=== PATIENT | male | born 1990 | race Caucasian/White ===

== ENCOUNTER → 2021-06-11 12:12 | Outpatient (BNVA) | payer OTHER, SELFPAY | PROVIDERS: PCP Internal Medicine Geriatric Medicine; Visit Provider Physician Assistant Medical | DX: L24.5 Irritant contact dermatitis due to other chemical products (principal); L03.115 Cellulitis of right lower limb | CPT/HCPCS: 16000; 16020; 99203 ==

== ENCOUNTER → 2021-06-13 08:40 | Outpatient (BNVA) | payer OTHER, SELFPAY | PROVIDERS: PCP Internal Medicine Geriatric Medicine; Visit Provider Physician Assistant Medical | DX: L24.5 Irritant contact dermatitis due to other chemical products (principal); L03.115 Cellulitis of right lower limb | CPT/HCPCS: 99213 ==

== ENCOUNTER → 2021-06-18 08:48 | Outpatient (BNVA) | payer OTHER, SELFPAY | PROVIDERS: PCP Internal Medicine Geriatric Medicine; Visit Provider Physician Assistant | DX: L24.5 Irritant contact dermatitis due to other chemical products (principal); L03.115 Cellulitis of right lower limb | CPT/HCPCS: 99213 ==

== ENCOUNTER → 2021-06-23 11:16 | Outpatient (BNVA) | payer OTHER, SELFPAY | PROVIDERS: PCP Internal Medicine Geriatric Medicine; Visit Provider Physician Assistant | DX: L24.5 Irritant contact dermatitis due to other chemical products (principal); L03.90 Cellulitis, unspecified | CPT/HCPCS: 99214 ==

== ENCOUNTER → 2021-06-25 15:00 | Outpatient (BNVA) | payer OTHER, SELFPAY | PROVIDERS: PCP Internal Medicine Geriatric Medicine; Visit Provider Physician Assistant | DX: L24.5 Irritant contact dermatitis due to other chemical products (principal); L03.90 Cellulitis, unspecified | CPT/HCPCS: 99213 ==

== ENCOUNTER → 2021-06-26 06:52 | Outpatient (BNVA) | payer OTHER, SELFPAY | PROVIDERS: PCP Internal Medicine Geriatric Medicine; Visit Provider Physician Assistant ==

== ENCOUNTER 2021-07-04 07:00 | Outpatient (RCR) | payer OTHER, SELFPAY | END 2021-12-08 09:37 | disposition home or self-care (01) | LOC: HO.PTWFD 07:00 | PROVIDERS: Visit Provider Physician Assistant | DX: M79.671 Pain in right foot (principal); R60.0 Localized edema | CPT/HCPCS: 97110; 97116; 97140; 97162; 97535 ==

== ENCOUNTER → 2021-07-11 15:20 | Outpatient (BNVA) | payer OTHER, SELFPAY | PROVIDERS: PCP Internal Medicine Geriatric Medicine; Visit Provider Physician Assistant Medical | DX: L24.5 Irritant contact dermatitis due to other chemical products (principal); L03.115 Cellulitis of right lower limb | CPT/HCPCS: 99213 ==

== ENCOUNTER → 2021-08-06 10:58 | Outpatient (BNVA) | payer OTHER, SELFPAY | PROVIDERS: PCP Internal Medicine Geriatric Medicine; Visit Provider Physician Assistant Medical | DX: L24.5 Irritant contact dermatitis due to other chemical products (principal); R60.1 Generalized edema | CPT/HCPCS: 99213 ==

== ENCOUNTER → 2021-09-03 09:24 | Outpatient (BNVA) | payer OTHER, SELFPAY | PROVIDERS: PCP Internal Medicine Geriatric Medicine; Visit Provider Physician Assistant Medical | DX: L24.5 Irritant contact dermatitis due to other chemical products (principal) | CPT/HCPCS: 93971; 99213 ==

== ENCOUNTER 2022-04-21 13:00 | Emergency (ER) | payer OTHER, SELFPAY ==
[2022-04-21 15:22] VITALS: BP 136/82; PULSE 85; RESP 16; TEMP 36.8; O2SAT 98; BMI 29.4
--- NOTE | 2022-04-21 15:32 | ED_ITS ---
HPI - Dental/Oral General Chief complaint: Dental/Oral Stated complaint: tooth infection Time Seen by Provider: 04/21/22 15:30 Source: patient Mode of arrival: ambulatory Limitations: no limitations History of Present Illness HPI Narrative: 31-year-old male here with reports ongoing lower dental pain for several weeks. Patient tells me 1 month ago he was admitted for a facial abscess that was secondary to a bad tooth infection at [facility]. He receive IV antibiotics and was discharged home with oral antibiotics. He completed a 2 week course. He says he was feeling better. Couple days ago he noticed some increasing and lower dental pain but he denies any facial swelling or facial pain or fever. Te lls me he did have an abscess on his left chin which he thought was secondary to an ingrown hair. He tells me he was seen at the walk-in clinic today and was referred into the emergency department for potential IV antibiotics. He tells me prior to coming in today he was able to pop the abscess and got alot of pus out of the abscess. He did call the dental clinic today and advised him to start oral antibiotics and then they are willing to see him once he completes the course Related Data Previous Rx's Medication Instructions Recorded amoxicillin 875 mg-potassium 1 tab PO BID #14 tab 04/21/22 clavulanate 125 mg tablet Allergies Allergy/AdvReac Type Severity Reaction Status Date / Time No Known Allergies Allergy Verified 04/21/22 12:25 Review of Systems Review of Systems: Yes all other systems are reviewed and are negative Constitutional: Constitutional: Reports no additional constitutional complaints, Denies body ache(s), Denies chills, Denies fever(s), Denies headache(s) and Denies weakness Eyes: Eyes: Reports no additional eye complaints and Denies change in vision ENT: Reports system reviewed and no additional complaints, except as documented, Reports dental pain, Denies dizziness, Denies headache(s), Denies nasal congestion, Denies nasal discharge and Denies neck pain Cardiovascular: Cardiovascular: Reports no additional cardiovascular complaints, Denies chest pain, Denies leg edema and Denies dyspnea Respiratory: Respiratory: Reports no additional respiratory complaints, Denies cough and Denies dyspnea Gastrointestinal: Gastrointestinal: Reports no additional gastrointestinal complaints, Denies abdominal pain, Denies diarrhea, Denies nausea and Denies vomiting Genitourinary: Genitourinary: Denies urinary incontinence Musculoskeletal: Musculoskeletal: Reports no additional musculoskeletal complaints, Denies back pain, Denies arthralgias, Denies joint swelling, Denies neck pain, Denies numbness and Denies tingling Integumentary/Breasts: Skin/Breast: Reports system reviewed and no additional complaints, except as docu and Denies rash Neurologic: Reports system reviewed and no additional complaints, except as documented, Denies Abnormal speech present, Denies dizziness, Denies headach e(s), Denies numbness, Denies tingling and Denies weakness [facility] Past Medical History Attestation statement: The following information was validated with the patient. Source: old records reviewed and nursing notes reviewed Social History Social History Advance Directives: No Advance Directives Information Provided: No Physical Exam Vital Signs: Vital Signs: Last Vital Signs Temp 98.2 F 04/21/22 15:22 Pulse 85 04/21/22 15:22 Resp 16 04/21/22 15:22 BP 136/82 04/21/22 15:22 Pulse Ox 98 04/21/22 15:22 BMI result Body Mass Index 29.4 Const: General: cooperative, healthy appearing, comfortable and no acute distress Orientation/consciousness: patient oriented x3 Limitations: no limitations HEENT: Head: Yes normal to inspection Ears: hearing grossly normal bilaterally and TM's normal bilaterally General nose exam: Normal external nose present Face and sinus: Yes normal facial exam Face images: 1. abrasion with crusting. No expressible drainage/induration or fluctuance. Mouth: Normal oral and palatal mucosa present, lip normal and tongue normal Teeth and gingiva: caries (extensive caries throughout ) Teeth image: 1. broken teeth with erythema/swelling to the gum line. NO fluctuance/swelling or obvious noted. NO trismus. No swelling under the tongue Throat: Yes posterior oropharynx normal, Yes tonsils normal and Yes uvula midline Eyes: General: appearance normal, both eyes and all related structures Pupils: Equal, round and reactive pupils present Neck: Neck: Yes normal visual inspection, Yes full ROM, Yes no lymphadenopathy and Yes no meningeal signs Chest: Chest palpation & inspection: normal inspection of the chest Resp: Effort & Inspection: normal respiratory effort Auscultation: clear to auscultation bilaterally Cardio: Rate: regular rate Rhythm: regular rhythm Peripheral pulses: Peripheral pulses 2+ throughout GI: Inspection: Yes normal to inspection Palpation (GI): Soft to palpation and nontender Auscultation: normal bowel sounds Back/Spine/Pelvis: Thoracic/Lumbar Spine: thoracic and lumbar spine normal to inspection Skin: General skin exam: no rashes or lesions noted Neuro: General: patient oriented x3, no meningeal signs, no focal motor deficits and normal sensation to monofilament Cranial nerves: Yes Equal, round and reactive pupils present Cognition (Neuro): normal cognition Speech: No Abnormal speech present Gait exam (Neuro): Normal gait present Motor exam (neuro): 5/5 motor strength present throughout Extrem: General: Yes normal to inspection Course Course Course Narrative: This is a 31-year-old male with extensive dental caries who is admitted 1 month ago to [facility] for facial cellulitis secondary to dental caries. Patient received several days of IV antibiotics and was discharged home with course of oral antibiotics for 2 weeks which she completed. Patient tells me he felt improved when leaving the hospital and felt well until about 2 days ago when he started to notice some increase in dental pain. He did call they dental clinic today and they recommended he start oral antibiotics and they would see him when he completed the course. He went to a walk-in clinic to get a prescription for oral antibiotics and they were concerned the patient may have a deeper infection and so he was sent into the emergency department for further evaluation. The patient does have a ingrown hair on his left chin which has been draining prior to arrival. He has no trismus. He has no lymphadenopathy. He has full range of motion of his neck. He is tolerating secretions. He has no facial swelling or any concern for Ludwigs angina. Nontoxic appearing will initiate oral antibiotics. Patient is instructed to return for any facial swelling, difficulty swallowing or difficulty breathing, fever. Comfortable with discharge home. [facility] - Dental/Oral Medical Records Attestation: I reviewed the patient's medical records. Lab Data Attestation: I reviewed the patient's lab results. Discharge Plan Discharge Clinical Impression: Toothache, Dental caries Patient Disposition: Home, Self-Care Instructions: Toothache (ED) Additional Instructions: Saltwater gargles Motrin or Tylenol for pain or fever Start her antibiotic Follow-up with dental clinic Return for swelling underneath your jaw, difficulty breathing or swallowing, fever Prescriptions: New amoxicillin-pot clavulanate 875-125 mg tablet 1 tab PO BID Qty: 14 0RF Referrals: Physician,None [Primary Care Provider] - 1 week Interventions: ED Discharge Assessment Last Done: 04/21/22 15:49 Discharge Date/Time: 04/21/22 15:51
== END 2022-04-21 15:51 | disposition home or self-care (01) ==
PROVIDERS: Emergency Provider Emergency Medicine
DX: K08.89 Other specified disorders of teeth and supporting structures (principal); K02.9 Dental caries, unspecified
CPT/HCPCS: 99283

== ENCOUNTER 2022-09-16 09:01 | Outpatient (REF) | payer OTHER, SELFPAY ==
--- NOTE | ~2022-09-16 | XR_ITS ---
EXAMINATION: XR HAND WRIST, LEFT CLINICAL INFORMATION: Pain COMPARISON: None TECHNIQUE: 4 views of the left hand wrist FINDINGS: Irregularity involving the mid body of the scaphoid suggesting fracture deformity, chronicity indeterminate. Correlation with physical exam and history of trauma. No acute visible dislocation. Slight positive ulnar variance. Joint spaces and alignment are otherwise maintained. Soft tissues are unremarkable. XR/XR hand wrist LT IMPRESSION: 1. Irregularity involving the mid body of the scaphoid suggesting fracture deformity, chronicity indeterminate. Correlation with physical exam and history of trauma. 2. No acute visible dislocation.
== END 2022-09-16 09:02 | disposition home or self-care (01) ==
LOC: HO.XRAY 09:01
PROVIDERS: PCP Hospitalist; Visit Provider Hospitalist
DX: M25.532 Pain in left wrist (principal); M79.642 Pain in left hand
CPT/HCPCS: 73110; 73130

== ENCOUNTER 2022-12-21 08:50 | Outpatient (REF) | payer OTHER, SELFPAY ==
[2022-12-21 12:00] LABS: Influenza A PCR NEGATIVE (Negative); Influenza B PCR NEGATIVE (Negative); Resp Syncy Virus RNA Qual PCR NEGATIVE (Negative); SARS COV2 PCR INHOUSE NEGATIVE (Negative)
== END 2022-12-21 08:51 | disposition home or self-care (01) ==
LOC: HO.LAB 08:50
PROVIDERS: Visit Provider Family Medicine
DX: Z20.822 Contact with and (suspected) exposure to COVID-19 (principal)
CPT/HCPCS: 0241U